=== PATIENT | female | born 1960 | race Caucasian/White ===

== ENCOUNTER 2022-12-03 11:43 | Outpatient (OUT) | payer OTHER, SELFPAY ==
[2022-12-03 13:06] LABS: SARS-CoV-2 Ag NEGATIVE (NEGATIVE)
[2022-12-04 15:28] LABS: SARS-CoV-2 NAA NOT DETECTED (NOT DETECTE)
== END 2022-12-03 11:44 | disposition home or self-care (01) ==
PROVIDERS: PCP Internal Medicine; Visit Provider Internal Medicine
DX: Z20.822 Contact with and (suspected) exposure to COVID-19 (principal)
CPT/HCPCS: 87635; 87811

== ENCOUNTER 2023-01-21 06:56 | Outpatient (OUT) | payer OTHER, SELFPAY ==
--- NOTE | 2023-01-21 06:58 | MM_ITS ---
Patient: ALEXANDER WEEKS Exam Date: 01/21/2023 : 1960 Gender:F Ordering : DR Chaka Carmichael D.O. Admission #: [id number] Family : Order #: [id number] CLICK HERE TO VIEW EXAM RADIOLOGY REPORT PROCEDURE: MM TOMOSYNTHESIS SCREENING BI COMPARISON: MG MAMM SCREEN KARRIE W CAD, 11/18/2019. INDICATIONS: Screening Calculator Name NCI Breast Cancer Risk Assessment Tool 5 Year Breast Cancer Risk Not Reported. Lifetime Breast Cancer Risk Not Reported. Personal Breast Cancer No Personal Ovarian Cancer No Treatments None Family Cancers None LOCATION: [facility] BREAST COMPOSITION: Almost entirely fatty. FINDINGS: DIAGNOSTIC CATEGORY 2--BENIGN FINDING: RIGHT BREAST: No significant suspicious finding. No significant change has occurred. LEFT BREAST: No significant suspicious finding. Stable small subareolar lymph node/nodule. No significant change has occurred. RECOMMENDATIONS: ROUTINE MAMMOGRAM AND CLINICAL EVALUATION IN 12 MONTHS. PLEASE NOTE: A NORMAL MAMMOGRAM DOES NOT EXCLUDE THE POSSIBILITY OF BREAST CANCER. A CLINICALLY SUSPICIOUS PALPABLE LUMP SHOULD BE BIOPSIED. Dictated by: Qamar Dillard M.D. on 01/22/2023 at 10:38 Approved by: Qamar Dillard M.D. on 01/22/2023 at 10:41
== END 2023-01-21 06:57 | disposition home or self-care (01) ==
LOC: MAMMO 06:56
PROVIDERS: PCP Internal Medicine; Visit Provider Internal Medicine
DX: Z12.31 Encounter for screening mammogram for malignant neoplasm of breast (principal)
CPT/HCPCS: 77063; 77067

== ENCOUNTER 2023-01-22 17:15 | Emergency (ER) | payer OTHER, SELFPAY ==
[2023-01-22 17:25] VITALS: BP 159/92; PULSE 95; RESP 16; TEMP 36.3; O2SAT 95; BMI 32.8
--- NOTE | 2023-01-22 18:32 | ED.SKABFB1 ---
HPI - Skin/Abscess/Foreign Bdy General Chief complaint: Skin/Abscess/Foreign Body Stated complaint: cut finger Time Seen by Provider: 01/22/23 17:38 Source: patient Mode of arrival: walk-in History of Present Illness HPI narrative: 63-year-old female presents for laceration to the tip of her right index finger. This was sustained on a razor blade just before coming into the emergency department. Last tetanus shot was six years ago. No other injury was sustained. There was some bleeding which was controlled with pressure. Related Data Allergies Allergy/AdvReac Type Severity Reaction Status Date / Time No Known Drug Allergies Allergy Verified 01/22/23 17:28 Review of Systems ROS Narrative A ten point review of systems is negative except as noted above. Exam Narrative Exam Narrative: Nurses note and vital signs reviewed and patient is not hypoxic. General: The patient appears well and in no apparent distress. Patient is resting comfortably on cart. Skin: Warm, dry, no pallor noted. There is no rash noted. Head: Normocephalic, atraumatic Eye: Normal conjunctiva, no drainage Ears, Nose, Mouth, and Throat: oral mucosa is moist. Nares patent. Cardiovascular: Regular Rate and Rhythm Respiratory: Patient is in no distress, no accessory muscle use Back: non-tender GI: nontender Musculoskeletal: the tip of the right index finger has a non-gaping laceration witthout any active bleeding. The nail and nailbed are is not involved. No other wound is prresent. Neurological: A&O, normal speech Psychiatric: Cooperative Constitutional Vital Signs, click to edit/add: Last Vital Signs Temp 97.4 F L 01/22/23 17:25 Pulse 95 H 01/22/23 17:25 Resp 16 01/22/23 17:25 BP 159/92 H 01/22/23 17:25 Pulse Ox 95 01/22/23 17:25 O2 Del Method Room Air 01/22/23 17:25 Course Vital Signs Vital signs: Vital Signs Temperature 97.4 F L 01/22/23 17:25 Pulse Rate 95 H 01/22/23 17:25 Respiratory Rate 16 01/22/23 17:25 Blood Pressure 159/92 H 01/22/23 17:25 Pulse Oximetry 95 01/22/23 17:25 Oxygen Delivery Method Room Air 01/22/23 17:25 Temperature 97.4 F L 10/12/23 17:25 Pulse Rate 95 H 01/22/23 17:25 Respiratory Rate 16 01/22/23 17:25 Blood Pressure 159/92 H 01/22/23 17:25 Pulse Oximetry 95 01/22/23 17:25 Oxygen Delivery Method Room Air 01/22/23 17:25 MDM - Skin/Abscess/Foreign Bdy MDM Narrative Medical decision making narrative: sutures are not indicated. Tetanus is already up-to-date. Gelfoam and tube gauze were applied and application checked by me and found to be appropriate, she is neurovascularly intact. Treatment diagnosis and follow-up were discussed with the patient. Differential Diagnosis Differential diagnosis: Likely other (laceration) Discharge Plan Discharge Chief Complaint: Skin/Abscess/Foreign Body Clinical Impression: Finger laceration Patient Disposition: Home, Self-Care Time of Disposition Decision: 18:31 Condition: Good Mode of Transportation: Private Vehicle Instructions: Laceration Without Closure (ED) Additional Instructions: Leave dressing on for forty-eight hours. Remove and apply bandage daily. Stand Alone Forms: Portal Instructions Referrals: Chaka Carmichael DO [Primary Care Provider] - 1 week
== END 2023-01-22 18:54 | disposition home or self-care (01) ==
PROVIDERS: Emergency Provider Emergency Medicine; PCP Internal Medicine
DX: S61.210A Laceration without foreign body of right index finger without damage to nail, initial encounter (principal); W26.9XXA Contact with unspecified sharp object(s), initial encounter
CPT/HCPCS: 99283

== ENCOUNTER 2023-01-23 09:40 | Outpatient (OUT) | payer OTHER, SELFPAY ==
[2023-01-23 10:05] LABS: Eosinophils Percent Auto 0.1 % (0.9-7.0); Hematocrit 41.3 % (36.0-48.0); Hemoglobin 14.5 g/dL (12.0-16.0); Immature Granulocytes Abs Auto 0.06 10^3/uL (0.00-0.03); Immature Granulocytes Pct Auto 0.8 % (0.0-0.5); Lymphocytes Absolute Auto 1.5 10^3/uL (1.2-3.8); Lymphocytes Percent Auto 21.3 % (20.5-60.0); Mean Corpuscular HGB Conc 35.1 g/dL (29.9-35.2); Mean Corpuscular Volume 88.4 fL (81.0-99.0); Mean Platelet Volume 9.9 fL (9.5-13.5); Monocytes Absolute Auto 0.5 10^3/uL (0.3-0.8); Monocytes Percent Auto 6.6 % (1.7-12.0); Neutrophils Absolute Auto 5.1 10^3/uL (1.4-6.5); Neutrophils Percent Auto 71.2 % (43.0-75.0); Platelet Count 202 10^3/uL (150-450); Red Blood Count 4.67 10^6/uL (4.20-5.40); Red Cell Distribution Width 12.3 % (11.0-15.0); White Blood Count 7.2 10^3/uL (4.0-11.0)
[2023-01-23 10:21] LABS: Microalbumin Urine Random <1.3 mg/dL (<=30.0)
[2023-01-23 10:33] LABS: Alanine Aminotransferase 39 U/L (14-59); Albumin Globulin Ratio 1.2; Albumin Level 4.1 g/dL (3.4-5.0); Alkaline Phosphatase 106 U/L (46-116); Anion Gap 14.1; Aspartate Amino Transferase 22 U/L (15-37); BUN Creatinine Ratio 28.2; Bilirubin Total 0.7 mg/dL (0.2-1.0); Calcium 8.5 mg/dL (8.5-10.1); Carbon Dioxide 27.7 mmol/L (21.0-32.0); Chloride 102 mmol/L (98-107); Chol HDL Ratio 4.8; Cholesterol 282 mg/dL (<=200); Estimated GFR (African America >60 (>=60); Estimated GFR (Non-African Ame >60 (>=60); Globulin 3.5 g/dL; Glucose 113 mg/dL (74-106); HDL Cholesterol 59 mg/dL (40-60); Potassium 3.8 mmol/L (3.5-5.1); Sodium 140 mmol/L (136-145); Total Protein 7.6 g/dL (6.4-8.2); Triglycerides 107 mg/dL (<=150); VLDL CHOLESTEROL 21.4 mg/dL
[2023-01-23 10:50] LABS: Estimated Average Glucose 134 mg/dL; Glycohemoglobin A1C 6.3 % (4.5-6.2)
== END 2023-01-23 09:41 | disposition home or self-care (01) ==
LOC: LAB 09:41
PROVIDERS: PCP Internal Medicine; Visit Provider Internal Medicine
DX: Z00.00 Encounter for general adult medical examination without abnormal findings (principal)
CPT/HCPCS: 36415; 80053; 80061; 82043; 83036; 85025

== ENCOUNTER 2024-12-05 08:09 | Outpatient (OUT) | payer OTHER, SELFPAY ==
--- OUTSIDE RECORDS SUMMARY | 2024-12-05 08:13 | XMS_ITS | Clinical Summary ---
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 Name Role Phone Swati Mendoza PROFESSOR OF VIOLIN Unavailable Allergies No known active allergies Medications atorvastatin (Lipitor) 40 MG tablet Take 40 mg by mouth 01/22/2023 Active venlafaxine XR (Effexor XR) 37.5 MG 24 hr capsule TAKE 1 CAPSULE BY MOUTH EVERY DAY WITH FOOD FOR 30 DAYS 05/07/2023 Active glimepiride (Amaryl) 2 MG tablet 07/11/2023 Active Mounjaro 2.5 MG/0.5ML solution pen-injector Inject 2.5 mg under the skin 05/08/2023 Active Active Problems No known active problems Family History Medical History Relation Name Comments Heart disease Father Cancer Mother Relation Name Status Comments Father Mother Social History Tobacco Use Types Packs/Day Years Used Date Smoking Tobacco: Never Smokeless Tobacco: Never Alcohol Use Standard Drinks/Week Comments Yes 0 (1 standard drink = 0.6 oz pur e alcohol) Comments Unknown Sex and Gender Information Value Date Recorded Sex Assigned at Not on file Legal Sex Female 6:38 PM EDT Gender Identity Not on file Sexual Orientation Not on file Last Filed Vital Signs Vital Sign Reading Time Taken Comments Blood Pressure - - Pulse - - Temperature 36.6 C (97.8 F) 08/26/2023 2:35 PM EDT Respiratory Rate - - Oxygen Saturation - - Inhaled Oxygen Concentration - - Weight 84.4 kg (186 lb) 08/26/2023 2:35 PM EDT Height 165.1 cm (5' 5 ) 08/26/2023 2:35 PM EDT Body Mass Index 30.95 08/26/2023 2:35 PM EDT Plan of Treatment Health Maintenance Due Date Last Done Comments CT Colonography 1961 Colonoscopy 1961 Colorectal Cancer Screening 1961 FIT-DNA 1961 FIT 1961 FOBT 1961 Sigmoidoscopy 1961 Pap Smear 1982 Cervical Cancer Screening 1991 HPV/Cotest 1991 Mammogram 2001 Influenza Vaccine (#1) 2024 01/31/2022 Insurance [place] [address] Care Teams 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
--- OUTSIDE RECORDS SUMMARY | 2024-12-05 08:13 | XMS_ITS | Clinical Summary ---
Author Organization [facility] Address [address] [place] [id number] Care Team Providers Care Translator/Interpreter Name Role Phone (History), No Pcp Primary Care Provider Unavaila ble Allergies No known active allergies Medications naproxen sodium (ALEVE ORAL) Take by mouth as needed. Active Active Problems No known active problems Family History Medical History Relation Comments Heart Father Cancer Mother Relation Status Comments Father Mother Social History Tobacco Use Types Packs/Day Years Used Date Smoking Tobacco: Never Smokeless Tobacco: Never Alcohol Use Standard Drinks/Week Comments Yes 0 (1 standard drink = 0.6 oz pur e alcohol) Comments Unknown Sex and Gender Information Value Date Recorded Sex Assigned at Not on file Legal Sex Female 9:32 AM EST Gender Identity Not on file Sexual Orientation Not on file Plan of Treatment Health Maintenance Due Date Last Done Comments Anxiety Screening 1979 Depression Screening 1979 HIV Screening 1979 Hepatitis C Screening 1979 DTaP,Tdap,Td Vaccine (1 - Tdap) 01/14/1980 Cervical Cancer Screening [address] Colonography 2006 Cologuard (FIT-DNA) 2006 Colonoscopy 2006 Colorectal Cancer Screening 2006 Diabetes Screening 2006 Fecal Occult Blood 2006 Lipid Screening 2006 Sigmoidoscopy 2006 Pneumococcal Vaccine: 50+ (1 of 1 - PCV) 2011 Shingrix Vaccine (1 of 2) 2011 Influenza Vaccine (#1) 2024 RSV Vaccine (1 - 1-dose 75+ series) 01/14/2036 Insurance [employer] Care Teams Translator/Interpreter Relationship Specialty Start Date End Date (History), No Pcp PCP - General 03/20/17
--- NOTE | 2024-12-05 08:19 | MM_ITS ---
Patient Name: ALEXANDER WEEKS MR#: [id number] : 1960 Exam Date: 12/05/2024 Ordering Doctor: LISETTE GUILLERMO . RADIOLOGY REPORT PROCEDURE: MM TOMOSYNTHESIS SCREENING BI COMPARISON: MM TOMOSYNTHESIS SCREENING BI, 01/21/2023. MG MAMM SCREEN KARRIE W CAD, 11/18/2019. INDICATIONS: Screening Calculator Name NCI Breast Cancer Risk Assessment Tool 5 Year Breast Cancer Risk Not Reported. Lifetime Breast Cancer Risk Not Reported. Personal Breast Cancer No Personal Ovarian Cancer No Treatments None Family Cancers None LOCATION: [facility] BREAST COMPOSITION: There are scattered areas of fibroglandular density. FINDINGS: DIAGNOSTIC CATEGORY 1--NEGATIVE. RIGHT BREAST: No significant suspicious finding. LEFT BREAST: No significant suspicious finding. RECOMMENDATIONS: ROUTINE MAMMOGRAM AND CLINICAL EVALUATION IN 12 MONTHS. Dictated by: Kyle Mccormick DO on 12/05/2024 at 10:13 Approved by: Kyle Mccormick DO on 12/05/2024 at 10:15
[2024-12-05 09:15] LABS: Hematocrit 43.4 % (36.0-48.0); Hemoglobin 15.5 g/dL (12.0-16.0); Immature Granulocytes Abs Auto 0.05 10^3/uL (0.00-0.03); Immature Granulocytes Pct Auto 0.6 % (0.0-0.5); Lymphocytes Absolute Auto 1.5 10^3/uL (1.2-3.8); Mean Corpuscular HGB Conc 35.7 g/dL (29.9-35.2); Mean Corpuscular Hemoglobin 31.7 pg (26.7-34.0); Mean Corpuscular Volume 88.8 fL (81.0-99.0); Platelet Count 240 10^3/uL (150-450); Red Blood Count 4.89 10^6/uL (4.20-5.40); White Blood Count 8.3 10^3/uL (4.0-11.0)
[2024-12-05 10:54] LABS: Alanine Aminotransferase 31 U/L (14-59); Albumin Globulin Ratio 1.1; Albumin Level 4.1 g/dL (3.4-5.0); Alkaline Phosphatase 81 U/L (46-116); Anion Gap 16.9; Aspartate Amino Transferase 30 U/L (15-37); Blood Urea Nitrogen 16.0 mg/dL (7.0-18.0); Calcium 9.0 mg/dL (8.5-10.1); Carbon Dioxide 27.0 mmol/L (21.0-32.0); Chloride 101 mmol/L (98-107); Cholesterol 279 mg/dL (<=200); Estimated GFR (African America >60 (>=60 mL/min/1.73m^2); Estimated GFR (Non-African Ame >60 (>=60 mL/min/1.73m^2); Globulin 3.9 g/dL; Glucose 114 mg/dL (74-106); HDL Cholesterol 74 mg/dL (40-60); Potassium 4.9 mmol/L (3.5-5.1); Sodium 140 mmol/L (136-145); Thyroid Stimulating Hormone 3.969 uIU/mL (0.358-3.740); Total Protein 8.0 g/dL (6.4-8.2); Triglycerides 143 mg/dL (<=150); VLDL CHOLESTEROL 28.6 mg/dL
== END 2024-12-05 08:10 | disposition home or self-care (01) ==
PROVIDERS: PCP Internal Medicine; Visit Provider Nurse Practitioner
DX: Z12.31 Encounter for screening mammogram for malignant neoplasm of breast (principal); E11.9 Type 2 diabetes mellitus without complications; I10 Essential (primary) hypertension; Z78.9 Other specified health status; Z68.30 Body mass index [BMI] 30.0-30.9, adult
CPT/HCPCS: 36415; 77063; 77067; 80053; 80061; 83036; 84443; 85025